=== PATIENT | female | born 1970 | race Caucasian/White ===

== ENCOUNTER 2024-10-28 02:42 | Emergency (ER) | payer MEDICAID ==
[~2024-10-28] VITALS: Ht 172.7 cm; Wt 81.0 kg
[~2024-10-28 02:42] MED LIST: CHOL100046 MT; LISI20TA31 MT; NORT50CA5 MT
[2024-10-28 02:50] VITALS: O2SAT 100
[2024-10-28] MEDS: ACETAMINOPHEN 500MG TABLET PO ONE (05:10)
[2024-10-28 05:25] VITALS: BP 121/77; PULSE 66; RESP 16; TEMP 36.4; O2SAT 100
[2024-10-28] MEDS ORDERED: ACET-2708 MT (07:22)
== END 2024-10-28 07:57 | disposition home or self-care (01) ==
LOC: ER 02:42
DX: G89.29 Other chronic pain (principal); M54.9 Dorsalgia, unspecified; M25.551 Pain in right hip; M25.552 Pain in left hip; E66.9 Obesity, unspecified; Z68.27 Body mass index [BMI] 27.0-27.9, adult; I10 Essential (primary) hypertension; Z79.899 Other long term (current) drug therapy
CPT/HCPCS: 72100; 72170; 99284